=== PATIENT | female | born 1990 | race Caucasian/White ===

== ENCOUNTER 2019-03-14 20:31 | Emergency (ER) | payer OTHER ==
--- NOTE | 2019-03-14 20:43 | EDPHY ---
H & P Stated Complaint: tight warm feeling in chest, then started feeling anxious Time Seen by Provider: 03/14/19 20:43 HPI/ROS: CHIEF COMPLAINT: Anxious, warm feeling in chest HISTORY OF PRESENT ILLNESS: The patient presents to the ED after she developed a warm feeling in her chest at a HR event earlier today. The patient does have a history of anxiety in these new symptoms precipitated a mild anxiety attack. By the time she arrived in the emergency department her symptoms have entirely resolved. The patient denies any asymmetric calf pain or swelling. She denies any pleuritic chest pain. She has no risk factors for coronary artery disease. She has not had any symptoms of cough or congestion. She has had a mild sore throat. She denies any abdominal pain or additional acute complaints. REVIEW OF SYSTEMS: A comprehensive 10 point review of systems is otherwise negative aside from elements mentioned in the history of present illness. Source: Patient Exam Limitations: No limitations - Personal History Current Tetanus/Diphtheria Vaccine: Yes Current Tetanus Diphtheria and Acellular Pertussis (TDAP): Yes Tetanus Vaccine Date: within 10 years - Medical/Surgical History Hx Asthma: No Hx Chronic Respiratory Disease: No Hx Diabetes: No Hx Cardiac Disease: No Hx Renal Disease: No Hx Cirrhosis: No Hx Alcoholism: No Hx HIV/AIDS: No Hx Splenectomy or Spleen Trauma: No Other PMH: R ACL tear, anxiety - Social History Smoking Status: Former smoker - Physical Exam Exam: General Appearance: Alert, no distress Eyes: Pupils equal and round no pallor or injection ENT, Mouth: Mucous membranes moist Respiratory: There are no retractions, lungs are clear to auscultation Cardiovascular: Regular rate and rhythm Gastrointestinal: Abdomen is soft and nontender, no masses, bowel sounds normal Skin: Warm and dry, no rashes Musculoskeletal: Neck is supple nontender Extremities: symmetrical, full range of motion Psychiatric: Patient is oriented X 3, there is no agitation Constitutional: Initial Vital Signs Temperature (C) 36.8 C 03/14/19 20:35 Heart Rate 83 03/14/19 20:35 Respiratory Rate 20 03/14/19 20:35 Blood Pressure 141/88 H 03/14/19 20:35 O2 Sat (%) 98 03/14/19 20:35 O2 Delivery Mode Room Air Allergies/Adverse Reactions: amoxicillin Allergy (Intermediate, Verified 03/14/19 20:34) Rash Penicillins Allergy (Intermediate, Verified 03/14/19 20:34) Rash Home Medications: Medication Instructions Recorded Adderall 10 mg Tablet 11/10/16 LORAZEPAM 11/10/16 Microgestin 11/10/16 Medical Decision Making - Diagnostics EKG Interpretation: EKG: Complete interpretation has been separately recorded in the [facility] archive. Summary impression: Sinus rhythm, rate 73, no ischemic changes noted ED Course/Re-evaluation: The patient presents the ED after mild anxiety reaction. Her EKG demonstrates no evidence of ischemia. Her symptoms have resolved. She has no risk factors for coronary artery disease. There is nothing to suggest pulmonary embolism or infectious source of her symptoms. The patient is comfortable being discharged at this point time. She is given customary aftercare instructions and return precautions. Departure - Departure Disposition: Home, Routine, Self-Care Clinical Impression: Anxiety Condition: Good Instructions: Anxiety (ED) Additional Instructions: 1. Return to the emergency department for any recurrent symptoms, difficulty breathing, fever or other concerns. 2. Follow up with your regular physician as needed. 3. Your EKG today is normal.
--- NOTE | 2019-03-14 21:05 | CPEKG ---
Test Reason : OPEN Blood Pressure : / mmHG Vent. Rate : 073 BPM Atrial Rate : 074 BPM P-R Int : 139 ms QRS Dur : 087 ms QT Int : 405 ms P-R-T Axes : 060 052 026 degrees QTc Int : 447 ms Sinus rhythm Confirmed by Demarco Soliman ([id number]) on 03/14/2019 9:04:52 PM Referred By: Demarco Soliman Confirmed By:Demarco Soliman
[2019-03-14 21:24] VITALS: BP 123/71
== END 2019-03-14 21:24 | disposition home or self-care (01) ==
DX: F41.9 Anxiety disorder, unspecified (principal)